=== PATIENT | male | born 1985 | race Caucasian/White ===

== ENCOUNTER 2016-07-23 13:45 | Emergency (ER) | payer BC ==
[~2016-07-23] VITALS: Ht 182.9 cm; Wt 99.0 kg
[2016-07-23] MEDS ORDERED: CLEOCIN300 MG PO (14:28)
[2016-07-23] MEDS ORDERED: PERIDEX1 ML MM (14:28)
[2016-07-23 14:37] VITALS: BP 147/96
== END 2016-07-23 14:38 | disposition home or self-care (01) ==
LOC: EME 13:45
DX: K04.7 Periapical abscess without sinus (principal); L03.211 Cellulitis of face; K08.89 Other specified disorders of teeth and supporting structures; Z87.891 Personal history of nicotine dependence
CPT/HCPCS: 99281; 99283